=== PATIENT | male | born 1970 | race Caucasian/White ===

== ENCOUNTER 2020-10-09 10:15 | Observation (INO) ==
[2020-10-09] MEDS ORDERED: NITROGLYCERIN 2% OINT 1 INCH/GM PACK TOP STA (11:16)
[2020-10-09] MEDS ORDERED: ENOXAPARIN 100 MG/ML SYRINGE SUBCUT STA (11:16)
[2020-10-09] MEDS ORDERED: NITROGLYCERIN SL 0.4 MG TABLET SL ONE (11:20)
[2020-10-09] MEDS: NITROGLYCERIN SL 0.4 MG TABLET SL PRN ×2 (11:20→14:20)
[2020-10-09] MEDS ORDERED: ENOXAPARIN 100 MG/ML SYRINGE SUBCUT ONE (11:20)
[2020-10-09 11:27] LABS: Basophils # 0.1 10*3/uL (0.0-0.2); Basophils % 0.8 % (0.0-0.8); Eosinophils # 0.1 10*3/uL (0.0-0.87); Eosinophils % 1.1 % (0.00-10.9); Hematocrit 40.7 VOL% (42.0-52.0); Hemoglobin 14.2 GM/DL (14.0-18.0); Immature Granulocytes % 0.3 %; Immature Granulocytes Absolute 0.02 #; Lymphocytes # 1.7 10*3/uL (1.4-4.0); Lymphocytes % 21.6 % (21.2-54.2); Mean Corpuscular HGB Conc 34.9 GM/DL (32-36); Mean Corpuscular Volume 89.3 FL (87-102); Monocytes % 6.7 % (1.7-12.7); Neutrophils % 69.5 % (38.7-73.9); Platelet Count 309 T/CUMM (130-400); Red Blood Count 4.56 MC/CUMM (3.8-5.5); Red Cell Distribution Width 13.1 % (9.3-17.3); White Blood Count 7.9 T/CUMM (4-12)
[2020-10-09 11:39] LABS: Calcium 9.4 MG/DL (8.5-10.1); Osmolality,Calculated 274.7 MOS/KG (273-304); Potassium 4.2 MMOL/L (3.5-5.1)
[2020-10-09] MEDS ORDERED: ONDANSETRON 4 MG/2 ML VIAL IV PRN (15:07)
[2020-10-09] MEDS ORDERED: DEXTROSE 50% 25 GM/50 ML VIAL IV PRN (15:07)
[2020-10-09] MEDS ORDERED: GLUCAGON 1 MG VIAL IM PRN (15:07)
[2020-10-09 17:29] LABS: Barbiturates Screen,Urine Negative (Negative); Benzodiazepines Screen,Urine Negative (Negative); Cannabinoid Screen,Urine Negative (Negative); Opiate Screen,Urine Negative (Negative); Phencyclidine Screen,Urine Negative (Negative)
[2020-10-09] MEDS ORDERED: ENOXAPARIN 40 MG/0.4 ML SYRINGE SUBCUT SCH (18:00)
[2020-10-09] MEDS ORDERED: ROSUVASTATIN 20 MG TABLET PO SCH (21:00)
[2020-10-09] MEDS: ACETAMINOPHEN 325 MG TABLET PO SCH (21:20)
[2020-10-09] MEDS: METOPROLOL TARTRATE 25 MG TABLET PO SCH (21:20)
[2020-10-10 07:47] LABS: Risk Ratio 5.56
[2020-10-10] MEDS ORDERED: PANTOPRAZOLE 40 MG TABLET PO SCH (09:00)
[2020-10-10] MEDS ORDERED: ASPIRIN EC 325 MG TABLET PO SCH (09:00)
[2020-10-10] MEDS: METOPROLOL TARTRATE 25 MG TABLET PO SCH (09:42)
[2020-10-10] MEDS: ACETAMINOPHEN 325 MG TABLET PO SCH (09:43)
[2020-10-10] MEDS: NITROGLYCERIN 2% OINT 1 INCH/GM PACK TOP SCH ×2 (09:44→11:59)
[2020-10-10 11:41] VITALS: BP 104/70
== END 2020-10-10 13:10 | disposition home or self-care (01) ==
LOC: N.EDINP 10:15 → N.ED 10:15 → SUATTDRO 15:07 → N.TELEN 15:53
PROVIDERS: ADMIT Internal Medicine; ATTEND Internal Medicine